=== PATIENT | male | born 1955 | race Caucasian/White ===

== ENCOUNTER 2025-09-12 09:58 | Outpatient (CLI) | payer MEDICARE, OTHER, SELFPAY ==
--- NOTE | 2025-09-12 10:08 | MRR_ITS ---
PROCEDURE INFORMATION: Exam: MR Left Upper Extremity Other Than Joint Without Contrast, Humerus. Exam date and time: 09/12/2025 10:41 AM Age: 70 years old Clinical indication: Injury or trauma; Injury details: Initial injury approx. 1 month ago, caught chair falling from pickup truck and felt pain in bicep. Re injured 1.5 weeks ago catching falling dish and felt pain in mid bicep that shot up arm. ; Additional info: Biceps tendon tear TECHNIQUE: Imaging protocol: Magnetic resonance imaging of the left upper extremity other than joint without contrast. Exam focused on the humerus. COMPARISON: No relevant prior studies available. FINDINGS: Bones/joints: There is no acute reactive marrow edema. There is no large joint effusion at the shoulder elbow. Tendons: The long head biceps tendon is torn and retracted distally into the mid aspect of the arm. This can best be seen on coronal series 601 image 21 through 23 width the tendon folded upon itself and peritendinous fluid. Proximally there is an empty biceps tendon sheath at the bicipital groove. The short head biceps brachii tendon is intact at the coracoid extending distally to the intramuscular component. The distal radial insertion of the biceps tendon is not identified. Soft tissues: There is some mild intramuscular edema within the proximal aspect of the biceps brachii long head muscle. MR/MR humerus LT wo con* [id number] IMPRESSION: 1. Complete tear of the long head biceps brachii tendon retracted distally to the mid aspect of the arm to the apex of the long head biceps brachii muscle. 2. Grade 1 strain of the proximal aspect of the long head biceps brachii muscle.
== END 2025-09-12 09:59 | disposition home or self-care (01) ==
PROVIDERS: PCP Nurse Practitioner Family; Visit Provider Nurse Practitioner Family
DX: S46.212A Strain of muscle, fascia and tendon of other parts of biceps, left arm, initial encounter (principal); W22.8XXA Striking against or struck by other objects, initial encounter
CPT/HCPCS: 73218

== ENCOUNTER → 2025-09-18 12:48 | Outpatient (BNVA) | payer MEDICARE, OTHER, SELFPAY | PROVIDERS: PCP Nurse Practitioner Family; Visit Provider Orthopaedic Surgery | DX: M24.812 Other specific joint derangements of left shoulder, not elsewhere classified (principal) | CPT/HCPCS: 99204 ==

== ENCOUNTER 2025-09-19 08:31 | Day surgery (SDC) | payer MEDICARE, OTHER, SELFPAY ==
[2025-09-19] VITALS (11 sets, daily range): BP systolic 133–163; BP diastolic 48–78; PULSE 70–79; RESP 16–20; TEMP 36.4–37.2; O2SAT 95–100; BMI 26.1
--- NOTE | 2025-09-19 09:33 | W.PM.OPSUD ---
Surgery/Procedure H&P Update DATE OF PROCEDURE: September 19, 2025 DATE H&P PERFORMED: 09/18/25 H&P UPDATE INFORMATION: I have reviewed H&P completed within last 30 days, I have examined patient prior to procedure and No changes to prior documentation PLANNED PROCEDURE: Operation Date: 09/19/25 11:55 Proposed Procedures p Shoulder Arthroscopy(Left) - MD willie Coley Labral Repair(Left) - MD willie Coley Rotator Cuff Repair - Open Open Rotator Cuff Repair(Left) - MD willie Coley Tenodesis Arthroscopy Shoulder Arthroscopic Biceps Tenodesis at Shoulder(Left) - Israel Lam MD
--- NOTE | 2025-09-19 10:32 | ANES.PREANE2 ---
Pre-Anesthetic Assessment Height/Weight: Height 5 ft 6 in Weight 162 lb Temp Pulse Resp BP Pulse Ox O2 Del Method 98.9 F 70 18 153/78 100 Room Air 09/19/25 09:00 09/19/25 09:00 09/19/25 09:00 09/19/25 09:00 09/19/25 09:00 09/19/25 09:05 Preop Diagnosis: Biceps tear Operation Date: 09/19/25 11:55 Proposed Procedures p Shoulder Arthroscopy(Left) - Israel Lam MD s Labral Repair(Left) - Israel Lam MD s Rotator Cuff Repair - Open Open Rotator Cuff Repair(Left) - Israel Lam MD s Tenodesis Arthroscopy Shoulder Arthroscopic Biceps Tenodesis at Shoulder(Left) - Israel Lam MD Was Beta Otoniel taken within 24 hours: N/A Was Clonidine taken within 24 hours: N/A Last intake: Intake Last Liquid Date 09/18/25 Last Liquid Time 20:30 Last Solid Date 09/18/25 Last Solid Time 20:30 Social No alcohol and No tobacco Exam alert, oriented x 3, clear to auscultation bilaterally and regular rate & rhythm Airway Submandibular: within normal limits Cervical ROM: within normal limits Mallampati: Class III Dentition: full Anesthetic Plan ASA status: 3 Anesthesia: General and Regional (specify below) Other: No prior issues with anesthesia NPO since yesterday evening History of hypertension on losartan and amlodipine. Preop BP 153/78 GERD on omeprazole Type 2 diabetes on Jardiance. Patient brought labs and from outside facility performed recently. Hemoglobin 15.3, NA 142, K+ 4.1 Hemoglobin A1c 7.4 Plan for GETA with preop nerve block Medications/Allergies Home Medications ?Medication ?Instructions ?Recorded ?Confirmed ?Last Taken ?Type amlodipine 5 mg tablet 5 mg PO DAILY 09/18/25 09/18/25 09/19/25 History atorvastatin 40 mg tablet (Lipitor) 40 mg PO DAILY 09/18/25 09/18/25 09/18/25 History empagliflozin 25 mg tablet 25 mg PO DAILY 09/18/25 09/18/25 09/18/25 History (Jardiance) glipizide 10 mg tablet 10 mg PO DAILY 09/18/25 09/18/25 09/18/25 History losartan 50 mg tablet 50 mg PO DAILY 09/18/25 09/18/25 09/18/25 History metformin 500 mg tablet 1,000 mg PO DAILY 09/18/25 09/18/25 09/18/25 History omeprazole 20 mg capsule,delayed 20 mg PO DAILY 09/18/25 09/18/25 09/18/25 History release Allergies Allergy/AdvReac Type Severity Reaction Status Date / Time No Known Allergies Allergy Verified 09/18/25 16:16 Current Medications Generic Name Dose Route Start Last Admin Trade Name Rgq PRN Reason Stop Dose Admin Sodium Chloride 1,000 mls @ 30 mls/hr 09/19/25 09:00 09/19/25 09:29 Sodium Chloride 0.9% IV 09/20/25 08:59 30 mls/hr .Q24H JANICE Administration PFSH Anesthesia Social History Smoking and tobacco/nicotine status: never used tobacco/nicotine
--- NOTE | 2025-09-19 11:50 | ANES.PROC ---
Anesthesia Procedures Procedure/Date: 09/19/25 Left interscalene peripheral nerve block for postoperative pain control Nerve Block ^: Nerve Block 1: Main Anesthesia: other (100 mcg fentanyl) Time Out Performed: Yes Consent: requested by attending/covering physician and from patient Laterality: Left Nerve block location: interscalene Anesthesia monitors applied: pulse oximetry, EKG, BP cuff and oxygen Nerve block position: supine Anesthetic Used: ropivicaine 0.5% Amount of anesthesia used (mL): 30 Ultrasound used to: recognize landmarks Nerve Stimulator Used?: Yes Interscalene/Femoral BLK: other needle (pjunk 4inch) Injection: neg aspiration of heme Patient Tolerated Procedure: well Complications: none Additional Comments: Decadron 4 mg added to block
--- NOTE | 2025-09-19 11:53 | PC.NURSE ---
1145: timeout performed by lamberto. using ultrasound guidance 30 ml of ropivicaine injected into left shoulder. image obtained and patient tolerated well
[2025-09-19] MEDS: ceFAZolin 2,000 mg SDV 2000 MG IVP (12:49)
--- NOTE | 2025-09-19 14:39 | P.OP_ITS ---
Operative Report Date of procedure: September 19, 2025 Surgeon: Israel Lam MD Procedure: Pre-op diagnosis: Internal derangement of the left shoulder with ruptured biceps tendon proximally Postoperative diagnosis: Degenerative tearing of labrum anterior superior and posterior, ruptured biceps tendon, rotator cuff tear, acromial impingement, hypertrophic bursa, multiple adhesions. Procedure: Diagnostic left shoulder arthroscopy with labral debridement biceps tendon stump debridement and rotator cuff tear debridement. Mini open acromioplasty rotator cuff repair bursectomy lysis of adhesions and biceps tenodesis Surgeon: Israel Lam MD [employer] Manager: SHIVAM Cantu Anesthesia: General With preoperative scalene block EBL: 30 cc Indications: Eze is a 70-year-old white male was referred in from the outside clinic for a recent proximal biceps tendon rupture. He was lifting a chair when it started to fall the back of his truck and he went to grab it with his left arm felt a pop in his arm now has a deformity of biceps musculature on the anterior aspect of the upper arm. Outside clinic ordered an MRI which demonstrates complete rupture of the biceps tendon and its retracted down to the top of the muscle bellies of the biceps. He also had evidence of possible damage to his rotator cuff as well as impingement of the acromion. Patient therefore at this time was offered to a diagnostic shoulder arthroscopy with all indicated procedures as well as a open repair ie tenodesis of his biceps tendon and any other structures. All risk benefits treatment alternatives were discussed with him he is agreeable to this at this time Procedure: After TAVR consent patient had preoperative scalene block administered in preop holding area. Patient was then taken to the operating room placed on the upper table supine position general anesthetic was administered. Once good anesthesia was achieved patient placed up in the beachchair position secured to the bed and padded out appropriately. Left shoulder and arm were prepped and draped usual fashion. After surgical timeout standard posterior portals made #11 blade camera cams placed into the glenohumeral joint line. Anterior working portal was also placed just inferior to the distal clavicle and into the anterior glenohumeral joint line. Evaluation the area found that there is fraying and degenerative tearing of the labrum from approximately 12 o'clock position all the way down to the 6 o'clock position. All this area was debrided with mechanical shaver down to stable cartilaginous base. Biceps tendon stump was also identified debrided off the anterior glenoid as well as out of the biceps hiatus. There is a small tear of the rotator cuff in this area noted this too was debrided. No other findings were found internally. At this point anterior lateral incision was made over the acromion. Sharp dissected gone down to subcutaneous tissues electrocautery was for hemostasis. Dissection was taken down down with electrocautery removing the deltoid from the anterior portion of the acromion. Once this is exposed acromioplasty was undertaken with a microsagittal saw. Bone fragments removed without any difficulties. Further evaluation found hypertrophic and thickened bursa that we had to be debrided from the area to expose the rotator cuff and bicipital groove. Digital palpation also swept the area to break up adhesions. There was a longitudinal tearing of the rotator cuff near the supraspinatus and the subscapularis junction. At this point a 15 blade was then used to open up the bicipital groove longitudinally finding that there was no tendon in the area. Milking of the biceps trying to force the tendon back up the bicipital groove was unsuccessful. Therefore by palpation tendon could be palpated in the anterior aspect of the midportion of the arm and therefore an incision was made directly over this through the skin with a 15 blade. Electrocautery used for hemostasis. Blunt sharp dissection was then done with Metzenbaum scissors down to the point of the fascia over the biceps musculature proximally. By digital palpation the tendon was identified and brought up to the incision line grasped with an Allis clamp. Subsequently a piece of FiberWire was then placed through the tip of this and down and weaved through back out through the tip for control of the tendon. A suture passer was placed down through the bicipital groove and exposed in the distal incision line. Sutures through the biceps tendon were placed through the loop tear and these were drawn back up to the superior aspect of the humerus. Tendon was then drawn back up through the bicipital groove into place. Once adequate tension release of been achieved as well as digital palpation through the mid arm incision to break up any adhesions to juggernaut bone anchors were placed these being 2.9 mm anchors that are double arm. Drill holes were placed in the bicipital groove and equal distance and anchors were placed within. Subsequently tension was pulled upward on the biceps tendon and the suturing was done with each of these anchors totaling 4 tiedown spots. Once this was achieved excess proximal biceps tendon was sharply debrided #15 blade. Bicipital groove was closed with [id number] sutures. Rotator cuff was then repaired with [id number] sutures also from the juggernaut sutures. Once everything was repaired further evaluation of shoulder found no further need for suturing of any parts of the rotator cuff. Areas washed copious nonsterile irrigation. Deltoid reapproximated 0 Vicryl [id number] sutures back to skin and subcutaneous tissue reapproximated 2-0 Vicryl interrupted sutures and skin was closed skin steph. Similar suturing was done for the anterior arm incision 2. Wounds are clean and dry dressed with Xeroform gauze sterile gauze dressing ABDs and adhesive tape. Patient was placed in abduction pillow and sling. He was awakened transferred recovery in stable condition
--- NOTE | 2025-09-19 15:28 | ANE.PACU2 ---
Inpatient post-anesthesia follow up: Airway intact: Yes Vital signs: Temperature 98.2 F Pulse Rate 76 Respiratory Rate 17 Blood Pressure 137/60 Pulse Oximetry 95 Oxygen Delivery Me thod Room Air Oxygen Flow Rate Fraction of Inspir ed Oxygen Hydration adequate: Yes Nausea and vomiting: No Pain level: 1 Mental status: Baseline
== END 2025-09-19 16:25 | disposition home or self-care (01) ==
PROVIDERS: PCP Nurse Practitioner Family; Visit Provider Orthopaedic Surgery
PROC: (CPT 29805; principal; 2025-09-19 11:55)
PROC: (CPT 23455; 2025-09-19 11:55)
PROC: (CPT 24340; 2025-09-19 11:55)
PROC: (CPT 23412; 2025-09-19 11:55)
DX: M24.812 Other specific joint derangements of left shoulder, not elsewhere classified (principal); S46.212A Strain of muscle, fascia and tendon of other parts of biceps, left arm, initial encounter; S43.432A Superior glenoid labrum lesion of left shoulder, initial encounter; X58.XXXA Exposure to other specified factors, initial encounter; M75.102 Unspecified rotator cuff tear or rupture of left shoulder, not specified as traumatic; M75.42 Impingement syndrome of left shoulder; M75.22 Bicipital tendinitis, left shoulder; I10 Essential (primary) hypertension; K21.9 Gastro-esophageal reflux disease without esophagitis; E11.9 Type 2 diabetes mellitus without complications; Z79.84 Long term (current) use of oral hypoglycemic drugs
CPT/HCPCS: 23412; 23130; 64415; C1713; J0690; J1100; J2371; J2405; J2704; J3010; J3490; J7030; J9999